=== PATIENT | male | born 1990 | race Caucasian/White ===

== ENCOUNTER 2022-05-12 11:44 | Emergency (ER) | payer SELFPAY ==
[~2022-05-12] VITALS: Ht 167.6 cm; Wt 62.0 kg
[2022-05-12 11:59] VITALS: BP 109/73
== END 2022-05-12 15:33 | disposition left against medical advice (07) ==
LOC: ER 11:44
DX: H57.11 Ocular pain, right eye (principal); Z53.21 Procedure and treatment not carried out due to patient leaving prior to being seen by health care provider